=== PATIENT | female | born 1975 | race Caucasian/White ===

== ENCOUNTER 2017-10-01 21:28 | Emergency (ER) | payer OTHER ==
[~2017-10-01] VITALS: Ht 154.9 cm; Wt 87.2 kg
[~2017-10-01 21:28] MED LIST: ALBUTEROL SULF8.5 GM IH; AMBIEN10 M1 PO; AMBIEN10 MG PO; ATIVAN; ATIVAN1 MG PO; BENTYL20 MG PO; CIPRO500 MG PO; CLONIDINE HCL PO; FLAGYL500 MG PO; FORTAMET500 M1 PO; GABAPENTIN300 MG PO; GLUCOPHAGE1000 M1 PO; GLYBURIDE-METF1 EAC1 PO; HYDROCODON-ACE1 EAC7 PO; JUNEL FE 1-201 EACH PO; LAMICTAL; LAMOTRIGINE25 M2 PO; LEVAQUIN750 MG PO; LISINOPRIL; LISINOPRIL5 MG PO; METFORMIN HCL1000 MG PO; METFORMIN HCL500 MG PO; MINIPRES1 MG PO; NEURONTIN600 MG PO; PRAZOSIN HCL2 MG PO; PROCTOFOAM-HC10 GM PR; QUESTRAN PACKET4 GM PO; SIMVASTATIN PO; SYNTHROID25 MCG PO; ULTRAM50 MG PO; VICODIN ES 71 TABLET PO; XANAX0.5 MG PO; ZITHROMAX Z-PA250 MG PO; ZOFRAN ODT4 MG PO; neurontin
[2017-10-01 22:50] VITALS: BP 118/84
== END 2017-10-02 00:11 | disposition home or self-care (01) ==
LOC: EME 21:28
DX: F43.9 Reaction to severe stress, unspecified (principal); F41.9 Anxiety disorder, unspecified; F32.9 Major depressive disorder, single episode, unspecified; Z04.6 Encounter for general psychiatric examination, requested by authority; E11.9 Type 2 diabetes mellitus without complications; Z79.84 Long term (current) use of oral hypoglycemic drugs; J45.909 Unspecified asthma, uncomplicated; E03.9 Hypothyroidism, unspecified; F60.3 Borderline personality disorder; Z88.8 Allergy status to other drugs, medicaments and biological substances
CPT/HCPCS: 90837; 99281; 99284

== ENCOUNTER 2018-01-12 23:20 | Emergency (ER) | payer OTHER ==
[~2018-01-12] VITALS: Ht 154.9 cm; Wt 88.9 kg
[2018-01-12 23:48] LABS: HEMATOCRIT 38.8 % (36.0-46.0); HEMOGLOBIN 12.7 G/DL (11.9-15.5); MCH 29.1 PG (29.0-34.0); MCHC 32.7 G/DL (30.0-36.0); PLATELET COUNT 342 K/uL (156-360); RBC DIS.WIDTH-CV 11.4 % (11.8-14.6); RBC DIS.WIDTH-SD 36.7 % (39-53); RED BLOOD COUNT 4.36 M/uL (3.80-5.20); WHITE BLOOD COUNT 10.2 K/uL (4.1-10.2)
[2018-01-12 23:57] LABS: ALBUMIN 4.2 g/dL (3.2-4.8); CHLORIDE 102 mEq/L (99-109); SODIUM 139 mEq/L (136-147)
[2018-01-12 23:59] LABS: GLUCOSE 108 mg/dL (70-99); TOTAL PROTEIN 7.2 g/dL (6.4-8.3)
[2018-01-13 00:01] LABS: TOTAL BILIRUBIN 0.2 mg/dL (0.0-1.0)
[2018-01-13 00:03] LABS: ALKALINE PHOSPHATASE 67 IU/L (3-129); CREATININE 0.8 mg/dL (0.6-1.3); GFR ESTIMATE (CALCULATED) > 59 mL/min/
[2018-01-13 00:04] LABS: UREA NITROGEN (BUN) 10 mg/dL (9-23)
[2018-01-13 00:05] LABS: AST (GOT) 14 IU/L (2-34)
[2018-01-13 00:06] LABS: ALT (GPT) 18 IU/L (3-49)
[2018-01-13 00:09] LABS: TROP-I INTERPRETATION NEGATIVE; TROPONIN-I < 0.01 ng/mL (0.0-0.30)
[2018-01-13 00:12] LABS: QUANTITATIVE HCG < 4.0 MIU/ML
[2018-01-13] MEDS ORDERED: PROVENTIL HFA6.7 GM IH (05:04)
[2018-01-13 05:24] VITALS: BP 97/83
== END 2018-01-13 05:26 | disposition left against medical advice (07) ==
LOC: EME 23:20
PROVIDERS: Emergency Medicine
DX: R60.0 Localized edema (principal); J40 Bronchitis, not specified as acute or chronic; R11.2 Nausea with vomiting, unspecified; R79.1 Abnormal coagulation profile; E11.9 Type 2 diabetes mellitus without complications; Z79.84 Long term (current) use of oral hypoglycemic drugs; Z88.8 Allergy status to other drugs, medicaments and biological substances; Z53.20 Procedure and treatment not carried out because of patient's decision for unspecified reasons
CPT/HCPCS: 71046; 80053; 81003; 83880; 84484; 84702; 85027; 85379; 87502; 93005; 94640; 99281; 99285

== ENCOUNTER 2018-05-26 03:41 | Emergency (ER) | payer OTHER ==
[~2018-05-26] VITALS: Ht 154.9 cm; Wt 84.9 kg
[~2018-05-26 03:41] MED LIST changes: +PROVENTIL HFA6.7 GM IH
[2018-05-26] MEDS ORDERED: PEN-VEE K,VEET500 MG PO (04:11)
[2018-05-26] MEDS ORDERED: NORCO 5/3251 TABLET PO (04:11)
[2018-05-26 04:23] VITALS: BP 121/88
== END 2018-05-26 04:23 | disposition home or self-care (01) ==
LOC: EME 03:41 → EXP 03:41
PROC: 3E0T3BZ Introduction of Anesthetic Agent into Peripheral Nerves and Plexi, Percutaneous Approach (ICD-10-PCS; principal; 2018-05-26)
DX: K05.00 Acute gingivitis, plaque induced (principal); K04.7 Periapical abscess without sinus; E11.9 Type 2 diabetes mellitus without complications; Z79.84 Long term (current) use of oral hypoglycemic drugs; Z88.8 Allergy status to other drugs, medicaments and biological substances
CPT/HCPCS: 99281; 99283

== ENCOUNTER 2018-07-22 01:08 | Emergency (ER) | payer OTHER ==
[~2018-07-22] VITALS: Ht 154.9 cm; Wt 77.3 kg
[~2018-07-22 01:08] MED LIST changes: +NORCO 5/3251 TABLET PO; +PEN-VEE K,VEET500 MG PO
[2018-07-22 02:36] LABS: HEMATOCRIT 36.5 % (36.0-46.0); MCH 30.1 PG (29.0-34.0); MCHC 32.9 G/DL (30.0-36.0); MCV 91.5 FL (83-99); PLATELET COUNT 345 K/uL (156-360); RBC DIS.WIDTH-SD 40.4 % (39-53); RED BLOOD COUNT 3.99 M/uL (3.80-5.20); WHITE BLOOD COUNT 12.3 K/uL (4.1-10.2)
[2018-07-22 02:47] LABS: ALBUMIN 4.1 g/dL (3.2-4.8)
[2018-07-22 02:48] LABS: CHLORIDE 103 mEq/L (99-109); POTASSIUM 3.8 mEq/L (3.7-5.4); SODIUM 139 mEq/L (136-147)
[2018-07-22 02:50] LABS: GLUCOSE 130 mg/dL (70-99); TOTAL PROTEIN 7.3 g/dL (6.4-8.3)
[2018-07-22 02:52] LABS: TOTAL BILIRUBIN 0.3 mg/dL (0.0-1.0)
[2018-07-22 02:53] LABS: SERUM ETHYL ALCOHOL < 10 mg/dL
[2018-07-22 02:54] LABS: ALKALINE PHOSPHATASE 40 IU/L (3-129); CREATININE 0.8 mg/dL (0.6-1.3); GFR ESTIMATE (CALCULATED) > 59 mL/min/
[2018-07-22 02:55] LABS: AST (GOT) 14 IU/L (2-34)
[2018-07-22 02:56] LABS: UREA NITROGEN (BUN) 14 mg/dL (9-23)
[2018-07-22 02:57] LABS: ALT (GPT) 14 IU/L (3-49); SALICYLATE < 5.0 MG/DL (15-30)
[2018-07-22 02:58] LABS: ACETAMINOPHEN (TYLENOL) < 10 mcg/mL (10-30)
[2018-07-22 03:03] LABS: QUANTITATIVE HCG < 4.0 MIU/ML
[2018-07-22 03:54] LABS: AMPHETAMINE NEGATIVE (500 ng/mL); BARBITURATES NEGATIVE (200 ng/mL); BENZODIAZEPINES PRESUMPTIVE POSITIVE (150 ng/mL); BUPRENORPHINE PRESUMPTIVE POSITIVE (10 ng/mL); COCAINE NEGATIVE (150 ng/mL); METHADONE NEGATIVE (200 ng/mL); METHAMPHETAMINE NEGATIVE (500 ng/mL); OPIATES (MORPHINE) PRESUMPTIVE POSITIVE (100 ng/mL); OXYCODONE NEGATIVE (100 ng/mL); PHENCYCLIDINE NEGATIVE (25 ng/mL); PROPOXYPHENE NEGATIVE (300 ng/mL); THC CANNABINOIDS NEGATIVE (50 ng/mL); TRICYCLIC ANTIDEPRESSANTS NEGATIVE (300 ng/mL)
[2018-07-22 03:55] VITALS: BP 146/97
[2018-07-22 05:46] LABS: BENZODIAZEPINES, URINE SCREEN POSITIVE (200 ng/mL)
== END 2018-07-22 04:13 | disposition home or self-care (01) ==
LOC: EME 01:08
PROVIDERS: Emergency Medicine
DX: F32.9 Major depressive disorder, single episode, unspecified (principal); F43.21 Adjustment disorder with depressed mood; Z63.5 Disruption of family by separation and divorce; E11.9 Type 2 diabetes mellitus without complications; Z79.84 Long term (current) use of oral hypoglycemic drugs; F17.200 Nicotine dependence, unspecified, uncomplicated
CPT/HCPCS: 80053; 84702; 84999; 85027; 90837; 99281; 99285; G0480